=== PATIENT | female | born 1990 | race Two or more races ===

== ENCOUNTER 2019-02-06 20:46 | Emergency (ER) | payer SELFPAY ==
[~2019-02-06] VITALS: Ht 152.4 cm; Wt 54.4 kg
--- NOTE | 2019-02-06 20:48 | NUR ---
ED Nurse Note: pt brought in by [facility] c/o anxiety and panic attack, per EMS/ pt's friends report, pt took edible marijuana and started feeling anxious and shaking. pt states it's her first time taking edible marijuana. pt AA&ox4, gcs=15, skin warm and dry, noted tachypnea, sinus tach on cardiac tech, vss, no sx resp distress, airway intact, noted pt shaking, will cont monitor. warm blanket provided for comfort.
[2019-02-06 20:59] VITALS: BP 151/114
[2019-02-06] MEDS ORDERED: LORazepam Inj 2mg/ml 1ml IV ONE ×2 (21:00→22:00)
[2019-02-06 21:26] VITALS: BP 122/76
--- NOTE | 2019-02-06 21:27 | NUR ---
ED Nurse Note: pt unable to provide urine sample at this time, pt advised to notify staff if need to use restroom for urine sample
[2019-02-06 21:39] LABS: BASOPHILS % (AUTO) 1.3 % (0.0-2.0); EOSINOPHILS % (AUTO) 4.6 % (0.0-3.0); HEMATOCRIT 37.4 % (37.0-47.0); HEMOGLOBIN 11.7 G/DL (12.0-16.0); LYMPHOCYTES % (AUTO) 50.7 % (20.0-45.0); MEAN CORPUSCULAR VOLUME 79 FL (80-99); MONOCYTES % (AUTO) 6.3 % (1.0-10.0); NEUTROPHILS % (AUTO) 37.2 % (45.0-75.0); PLATELET COUNT 311 K/UL (150-450); RED BLOOD COUNT 4.73 M/UL (4.20-5.40); RED CELL DISTRIBUTION WIDTH 14.8 % (11.6-14.8); WHITE BLOOD COUNT 10.2 K/UL (4.8-10.8)
[2019-02-06 21:40] LABS: ANION GAP 13 mmol/L (5-15); BLOOD UREA NITROGEN 13 mg/dL (7-18); CARBON DIOXIDE 25 MMOL/L (21-32); CHLORIDE 103 MMOL/L (98-107); CREATININE 0.9 MG/DL (0.55-1.30); POTASSIUM 3.6 MMOL/L (3.5-5.1); SODIUM 141 MMOL/L (136-145)
--- NOTE | 2019-02-06 21:41 | NUR ---
ED Nurse Note: friends at the bedside, pt states she still feels anxious, noted pt shaking and crying, ERMD notified regarding pt's condition.
[2019-02-06 21:44] LABS: ALANINE AMINOTRANSFERASE 87 U/L (12-78); ALBUMIN 4.1 G/DL (3.4-5.0); ALBUMIN/GLOBULIN RATIO 1.3 (1.0-2.7); ALKALINE PHOSPHATASE 52 U/L (46-116); ASPARTATE AMINO TRANSFERASE 59 U/L (15-37); BILIRUBIN,TOTAL 0.3 MG/DL (0.2-1.0)
--- NOTE | 2019-02-06 22:11 | NUR ---
ED Nurse Note: URINE SAMPLE OBTAINED AND SENT TO LAB.
[2019-02-06 22:16] LABS: APPEARANCE,URINE CLEAR; BILIRUBIN, URINE NEGATIVE (NEGATIVE); COLOR,URINE PALE YELLOW; GLUCOSE, URINE (UA) NEGATIVE (NEGATIVE); KETONES,URINE NEGATIVE (NEGATIVE); LEUKOCYTE ESTERASE ,URINE NEGATIVE (NEGATIVE); NITRITE,URINE NEGATIVE (NEGATIVE); PH,URINE 7 (4.5-8.0); PROTEIN,URINE NEGATIVE (NEGATIVE); UROBILINOGEN,URINE NORMAL MG/DL (0.0-1.0)
--- NOTE | 2019-02-06 22:24 | Emergency Room Report ---
History of Present Illness General Chief Complaint: Substance Abuse Source: Patient, Friend Present Illness HPI 28-year-old female presents ED for evaluation. Brought in by EMS. Patient consumed edible marijuana tonight and is feeling very anxious and his heart racing. Denies any other drug use. Denies chest pain. Denies SI or HI. No other aggravating relieving factors. Denies any other associated symptoms Allergies: Coded Allergies: No Known Allergies (Unverified , 02/06/19) Patient History Past Medical History: none Past Surgical History: none Pertinent Family History: none Social History: Reports: drug use; Denies: smoking, alcohol use Last Menstrual Period: 01/30 Now: No Immunizations: UTD Reviewed Nursing Documentation: PMH: Agreed; PSxH: Agreed Nursing Documentation-PMH Past Medical History: No Stated History Review of Systems All Other Systems: negative except mentioned in HPI Physical Exam Vital Signs Date Time Temp Pulse Resp B/P (MAP) Pulse Ox O2 Delivery O2 Flow Rate FiO2 02/06/19 20:47 97.3 117 20 95 Room Air 02/06/19 20:59 151/114 Sp02 EP Interpretation: reviewed, normal General Appearance: alert, GCS 15, non-toxic, mild distress Head: normocephalic Eyes: bilateral eye normal inspection, bilateral eye PERRL ENT: normal ENT inspection Neck: normal inspection Respiratory: chest non-tender, lungs clear, normal breath sounds, speaking full sentences Cardiovascular #1: tachycardia Gastrointestinal: normal inspection Rectal: deferred Genitourinary: no CVA tenderness Musculoskeletal: normal inspection Neurologic: other - anxiety Psychiatric: no suicidal/homicidal ideation, no delusions, anxious Skin: normal inspection Lymphatic: normal inspection Medical Decision Making Diagnostic Impression: Primary Impression: Substance abuse ER Course Hospital Course 28-year-old F presents to ED with anxiety, lethargy after using edible marijuana Differential diagnoses include: Psychosis, EtOH, drug abuse Clinical course patient placed on stretcher. On color television console monitor. After initial history and physical ordered labs, IV fluids, ativan Labs reviewed-electrolytes okay, no leukocytosis, hemoglobin/hematocrit stable, tox panel + THC Patient allowed to rest. Tachycardia resolved. On reassessment patient awake alert oriented. States she feels better. Discussed findings with patient. Safe for discharge close outpatient follow-up. States she has a PMD i. I feel this is a highly complex case requiring extensive working including EKG/Rhythm strip, Xray/CT/US, Blood/urine lab work, repeat exams while in ED, and administration of strong opiates/narcotics for pain control, admission to hospital or close patient follow up. Diagnosis - substance abuse Stable and discharged to home. Followup with PMD. Return to ED if symptoms recur or worsen Labs Test 02/06/19 21:00 02/06/19 22:07 White Blood Count 10.2 K/UL (4.8-10.8) Red Blood Count 4.73 M/UL (4.20-5.40) Hemoglobin 11.7 G/DL (12.0-16.0) Hematocrit 37.4 % (37.0-47.0) Mean Corpuscular Volume 79 FL (80-99) Mean Corpuscular Hemoglobin 24.6 PG (27.0-31.0) Mean Corpuscular Hemoglobin Concent 31.2 G/DL (32.0-36.0) Red Cell Distribution Width 14.8 % (11.6-14.8) Platelet Count 311 K/UL (150-450) Mean Platelet Volume 6.5 FL (6.5-10.1) Neutrophils (%) (Auto) 37.2 % (45.0-75.0) Lymphocytes (%) (Auto) 50.7 % (20.0-45.0) Monocytes (%) (Auto) 6.3 % (1.0-10.0) Eosinophils (%) (Auto) 4.6 % (0.0-3.0) Basophils (%) (Auto) 1.3 % (0.0-2.0) Sodium Level 141 MMOL/L (136-145) Potassium Level 3.6 MMOL/L (3.5-5.1) Chloride Level 103 MMOL/L (98-107) Carbon Dioxide Level 25 MMOL/L (21-32) Anion Gap 13 mmol/L (5-15) Blood Urea Nitrogen 13 mg/dL (7-18) Creatinine 0.9 MG/DL (0.55-1.30) Estimat Glomerular Filtration Rate > 60 mL/min (>60) Glucose Level 141 MG/DL (74-106) Calcium Level 9.0 MG/DL (8.5-10.1) Total Bilirubin 0.3 MG/DL (0.2-1.0) Aspartate Amino Transf (AST/SGOT) 59 U/L (15-37) Alanine Aminotransferase (ALT/SGPT) 87 U/L (12-78) Alkaline Phosphatase 52 U/L (46-116) Total Protein 7.3 G/DL (6.4-8.2) Albumin 4.1 G/DL (3.4-5.0) Globulin 3.2 g/dL Albumin/Globulin Ratio 1.3 (1.0-2.7) Salicylates Level 1.5 ug/mL (2.8-20) Acetaminophen Level < 2 MCG/ML (10-30) Serum Alcohol < 3 mg/dL Urine Color Pale yellow Urine Appearance Clear Urine pH 7 (4.5-8.0) Urine Specific Taylor 1.010 (1.005-1.035) Urine Protein Negative (NEGATIVE) Urine Glucose (UA) Negative (NEGATIVE) Urine Ketones Negative (NEGATIVE) Urine Blood Negative (NEGATIVE) Urine Nitrite Negative (NEGATIVE) Urine Bilirubin Negative (NEGATIVE) Urine Urobilinogen Normal MG/DL (0.0-1.0) Urine Leukocyte Esterase Negative (NEGATIVE) Urine HCG, Qualitative Negative (NEGATIVE) Urine Opiates Screen Negative (NEGATIVE) Urine Barbiturates Screen Negative (NEGATIVE) Phencyclidine (PCP) Screen Negative (NEGATIVE) Urine Amphetamines Screen Negative (NEGATIVE) Urine Benzodiazepines Screen Negative (NEGATIVE) Urine Cocaine Screen Negative (NEGATIVE) Urine Marijuana (THC) Screen Positive (NEGATIVE) EKG Diagnostic Results ASA given to the pt in ED: No Last Vital Signs Date Time Temp Pulse Resp B/P (MAP) Pulse Ox O2 Delivery O2 Flow Rate FiO2 02/06/19 21:26 98 22 122/76 100 Room Air 02/06/19 20:59 97.3 Status: improved Disposition: HOME, SELF-CARE Condition: Stable Referrals: NON PHYSICIAN (PCP) Harry Gerber MD Feb 06, 2019 22:24
[2019-02-06 23:00] VITALS: BP 118/67
--- NOTE | 2019-02-06 23:17 | NUR ---
ED Nurse Note: pt sleeping at this time, no sx distress noted, vss, resp even and unlabored on RA, nsr on registered nurse cardiac telemetry, all safety precautions in place, will cont monitor.
--- NOTE | 2019-02-07 01:16 | NUR ---
ED Nurse Note: pt cleared to be d/c per ERMD, pt now Awake and alert x4, gcs=15, pt discharge and aftercare instruction provided, pt education done via discussion and handout, pt advised to follow up with pcp or return to ed if changes in condition, pt verbalized understanding and agrees with plan, pt advised to stop using illegal drugs, pt vss, resp even and unlabored on RA, iv d/c and id band removed, accompanied by friends.
[2019-02-07 01:17] VITALS: BP 118/67
== END 2019-02-07 01:17 | disposition home or self-care (01) ==
LOC: EDBD 20:46 → EMR 21:11
DX: F12.10 Cannabis abuse, uncomplicated (principal)
CPT/HCPCS: 36415; 80053; 80307; 81003; 81025; 85025; 96361; 96374; 96376; 99284; G0480; 80329